=== PATIENT | male | born 1950 | race Caucasian/White ===

== ENCOUNTER 2019-12-11 01:10 | Emergency (ER) | payer MEDICARE ==
[2019-12-11] MEDS ORDERED: IV NORMAL SALINE 250ML 250 ML ONE (01:23)
[2019-12-11] MEDS ORDERED: EPINEPHrine SYRINGE 1 MG/10 ML SYRINGE ONE (01:30)
[2019-12-11] MEDS ORDERED: AMIODARONE 150 MG/3 ML VIAL IVP ONE (01:30)
[2019-12-11 01:41] VITALS: BP 125/67
--- NOTE | 2019-12-11 02:04 | PHYS DOC ---
Adult General Chief Complaint Chief Complaint: CPR/FULL ARREST HPI HPI Patient is a 69 year old male who presents with hx of increased dyspnea after going to the bathroom per . Pt. collapsed at home and was non-responsive. Chain Repairer s called and arrived at scene 22 min.,left scene 0111 . No comp ressions before arrival of illusionist. Pt. received airway- oral, compressions and respirations. Pt. diverted from [place] where he normally goes for care. Pt. received approximated 5 Epi. prior to arrival at ED. Pt. did have a return of pulses, but again required compressions. Pt. never had spontaneous breathing .Pt. did have pulse with compressions. Patient then had spontaneous pulse and for short time BP. Pt. then went into Vfib. loss pulse. CPR restarted and additional EPI and amiodarone given in preparation for defibrillation. No defibrillation- patient went asystole. Asystole protocol continued patient was ventilated with 100% oxygen, had breath sounds at apexes. Given fluid boluses and Epi. See Code sheet for details. Code eventually called at 0145 hrs. . [place] records requested. - advised would not be available unitl 0800 hr.s advised he had health issues COPD and cardiac. Review of Systems Review of Systems Non-responsive advised he developed dyspnea and collapsed Family History Family History Noncontributory Current Medications Current Medications Current Medications Medications (Trade) Dose Ordered Sig/Nico Start Time Stop Time Status Last Admin Dose Admin Epinephrine HCl (EPINEPHrine AMPULE) 1 mg STK-MED ONCE 12/11/19 01:23 12/11/19 01:23 DC Sodium Chloride 250 ml @ As Directed STK-MED ONCE 12/11/19 01:23 12/11/19 01:23 DC Allergies Allergies Unknown Physical Exam Physical Exam Constitutional: Morbid in appearance HENT: Normocephalic, atraumatic, bilateral external ears normal, oropharynx moist, no oral exudates, nose normal. []Oral airway in place. Eyes: Pupils dilated and fixed Neck: Trachea midline Cardiovascular: Occasional pulse, V. fib, bradycardia, asystole see code sheet for details. Bedside ultrasound showed no cardiac activity at time of . No Obvious pericardial effusion Lungs & Thorax: Bilateral breath sounds at apexes on bag tube ventilation's. Abrasion ecchymosis from compressions. Abdomen: No breath sounds over gastric area with ventilations Skin: Pale and cyanotic extremities Back: Ecchymosis from backboard Extremities: Arthritic changes. Extremities cyanotic Neurologic: Nonresponsive EKG EKG [] Radiology/Procedures Radiology/Procedures [] Course & Med Decision Making Course & Med Decision Making Pertinent Labs and Imaging studies reviewed. (See chart for details) See code sheet for details. Code called 0145. Cardiopulmonary arrest Impression: 1. Cardiopulmonary arrest- Dyspnea prior collapse [] Dragon Disclaimer Dragon Disclaimer This electronic medical record was generated, in whole or in part, using a voice recognition dictation system. Departure Departure: Disposition: 01 HOME/RESIDENCE PRIOR TO ADM Condition: STABLE Referrals: NON,STAFF (PCP) Dragon Disclaimer This chart was dictated in whole or in part using Voice Recognition software in a busy, high-work load, and often noisy Emergency Department environment. It may contain unintended and wholly unrecognized errors or omissions. CHARLIE SHEETS MD Dec 11, 2019 02:04
[2019-12-11] MEDS ORDERED: EPINEPHrine 4 MG in IV NORMAL SALINE 250ML 250 ML IV PRN (03:00)
[2019-12-11] MEDS ORDERED: IV NORMAL SALINE 1,000ML 1,000 ML IV ONE (03:30)
== END 2019-12-11 05:03 | disposition expired ==
LOC: ER 01:10
DX: I46.9 Cardiac arrest, cause unspecified (principal); J44.9 Chronic obstructive pulmonary disease, unspecified
CPT/HCPCS: 92950; 99291; J0171; J0282; J7050; 99285; J7030